=== PATIENT | female | born 1965 | race Caucasian/White ===

== ENCOUNTER 2016-09-30 17:10 | Emergency (ER) | payer MEDICAID ==
[2016-09-30] MEDS ORDERED: OXYCODONE-ACETAMINOPHEN 5-325 MG TABLET PO ONE (17:18)
--- NOTE | 2016-09-30 17:18 | ER Document Report ---
ED Medical Screen (RME) - General Stated Complaint: URINARY PROBLEM Mode of Arrival: Ambulatory Information source: Patient Notes: Patient complains of left flank pain for the past 2 days with difficulty urinating. Patient denies any fever. Patient does report a previous history kidney stones. hx: Kidney stones I have greeted and performed a rapid initial assessment of this patient. A comprehensive ED assessment and evaluation of the patient, analysis of test results and completion of the medical decision making process will be conducted by additional ED providers. TRAVEL OUTSIDE OF THE [place] IN LAST 30 DAYS: No - Related Data Allergies/Adverse Reactions: ibuprofen Allergy (Verified 09/30/16 17:17) latex Allergy (Verified 09/30/16 17:17) Penicillins Allergy (Verified 09/30/16 17:17) povidone-iodine [From Betadine] Allergy (Verified 09/30/16 17:17) soap [From Betadine] Allergy (Verified 09/30/16 17:17) Past Medical History Renal/ Medical History: Reports: Hx Kidney Stones, Hx Ovarian Cysts Malignancy Medical History: Reports: Hx Ovarian Cancer Musculoskeltal Medical History: Reports Hx Arthritis, Reports Hx Musculoskeletal Deformity, Reports Hx Musculoskeletal Trauma Psychiatric Medical History: Reports: Hx Post Traumatic Stress Disorder Traumatic Medical History: Reports: Hx Fractures Past Surgical History: Reports: Hx Adenoidectomy, Hx Hysterectomy, Hx Orthopedic Surgery - carpal tunnel, Hx Tonsillectomy, Hx Umbilical Hernia, Other - eye surgery Physical Exam - Vital signs Vitals: Temp Pulse Resp BP Pulse Ox 98.1 F 92 22 H 132/84 H 95 09/30/16 17:15 09/30/16 17:15 09/30/16 17:15 09/30/16 17:15 09/30/16 17:15 - Back Back: CVA tenderness - Left flank Course - Vital Signs Vital signs: Temp Pulse Resp BP Pulse Ox 98.1 F 92 22 H 132/84 H 95 09/30/16 17:15 09/30/16 17:15 09/30/16 17:15 09/30/16 17:15 09/30/16 17:15
[2016-09-30 18:45] LABS: ABSOLUTE BASOPHILS # (AUTO) 0.1 10^3/uL (0.0-0.2); ABSOLUTE EOSINOPHILS # (AUTO) 0.4 10^3/uL (0.0-0.6); ABSOLUTE MONOCYTES (AUTO) 1.1 10^3/uL (0.1-1.4); BASOPHILS % (AUTO) 0.9 % (0-2); EOSINOPHILS % (AUTO) 3.1 % (0-6); HEMATOCRIT 45.1 % (36.0-47.0); HEMOGLOBIN 15.1 g/dL (12.0-15.5); HGB HCT DIFFERENCE 0.2; LYMPHOCYTES % (AUTO) 39.6 % (13-45); MEAN CORPUSCULAR HEMOGLOBIN 31.4 pg (27.0-33.4); MEAN CORPUSCULAR HGB CONC 33.5 g/dL (32.0-36.0); MEAN CORPUSCULAR VOLUME 94 fl (80-97); MONOCYTES % (AUTO) 8.9 % (3-13); RED BLOOD COUNT 4.82 10^6/uL (3.72-5.28); RED CELL DISTRIBUTION WIDTH 12.5 % (11.5-14.0); SEGMENTED NEUTROPHILS % (AUTO) 47.5 % (42-78); WHITE BLOOD COUNT 12.7 10^3/uL (4.0-10.5)
[2016-09-30 18:46] LABS: APPEARANCE,URINE CLEAR; BILIRUBIN,URINE NEGATIVE (NEGATIVE); GLUCOSE, URINE NEGATIVE (NEGATIVE); KETONES,URINE NEGATIVE (NEGATIVE); LEUKOCYTE ESTERASE,URINE NEGATIVE (NEGATIVE); NITRITE,URINE NEGATIVE (NEGATIVE); PROTEIN,URINE NEGATIVE (NEGATIVE); URINE SPECIFIC GRAVITY 1.008; UROBILINOGEN,URINE NEGATIVE mg/dL (<2.0)
[2016-09-30 18:56] LABS: ALANINE AMINOTRANSFERASE 34 U/L (9-52); ALBUMIN 3.6 g/dL (3.5-5.0); ALKALINE PHOSPHATASE 57 U/L (38-126); ANION GAP 11 (5-19); ASPARTATE AMINO TRANSFERASE 20 U/L (14-36); BILIRUBIN,TOTAL 0.3 mg/dL (0.2-1.3); BLOOD UREA NITROGEN 11 mg/dL (7-20); CALCIUM 9.6 mg/dL (8.4-10.2); CARBON DIOXIDE 29 mmol/L (22-30); CHLORIDE 108 mmol/L (98-107); CREATININE RESULT 0.96 mg/dL (0.52-1.25); GLUCOSE 110 mg/dL (75-110); POTASSIUM 4.1 mmol/L (3.6-5.0); SODIUM 147.8 mmol/L (137-145); TOTAL PROTEIN 6.8 g/dL (6.3-8.2)
--- NOTE | 2016-09-30 20:18 | ER Document Report ---
ED GI/ - General Chief Complaint: Low Back Pain Stated Complaint: URINARY PROBLEM Time seen by provider: 20:18 Mode of Arrival: Ambulatory Notes: 51-year-old female presents to ED for complaint of left flank pain for 2 days. She states that yesterday she had frequency of urination but today she's had very little urine. She states she has drank 6 bottles of water today. She says it feels like the last time she had a kidney stone. Last kidney stone was over a year ago at which time she had a CAT scan. TRAVEL OUTSIDE OF THE [place] IN LAST 30 DAYS: No - HPI Patient complains to provider of: Dysuria, Flank pain Onset: Other - 2 days Timing/Duration: Intermittent Quality of pain: Sharp Severity at maximum: Severe Severity in ED: Moderate Pain Level: 2 Location: Left flank Vaginal bleeding (Compared to normal period): None Associated symptoms: Dysuria. denies: Nausea, Vomiting Exacerbated by: Sitting, Movement, Other Relieved by: Denies Similar symptoms previously: Yes Recently seen / treated by doctor: No - Related Data Allergies/Adverse Reactions: ibuprofen Allergy (Verified 09/30/16 17:17) latex Allergy (Verified 09/30/16 17:17) Penicillins Allergy (Verified 09/30/16 17:17) povidone-iodine [From Betadine] Allergy (Verified 09/30/16 17:17) soap [From Betadine] Allergy (Verified 09/30/16 17:17) Past Medical History - General Information source: Patient - Social History Smoking Status: Current Every Day Smoker Chew tobacco use (# tins/day): No Frequency of alcohol use: None Drug Abuse: None Lives with: Family Family History: Arthritis, CAD, COPD, CVA, DM, Hyperlipidemia, Hypertension, Malignancy, Thyroid Disfunction Patient has suicidal ideation: No Patient has homicidal ideation: No - Past Medical History Cardiac Medical History: Reports: None Pulmonary Medical History: Reports: None EENT Medical History: Reports: None Neurological Medical History: Reports: None Endocrine Medical History: Reports: None Renal/ Medical History: Reports: Hx Kidney Stones, Hx Ovarian Cysts. Denies: Hx Peritoneal Dialysis Malignancy Medical History: Reports: Hx Ovarian Cancer GI Medical History: Reports: None Musculoskeltal Medical History: Reports Hx Arthritis, Reports Hx Musculoskeletal Deformity, Reports Hx Musculoskeletal Trauma Psychiatric Medical History: Reports: Hx Post Traumatic Stress Disorder Traumatic Medical History: Reports: Hx Fractures Past Surgical History: Reports: Hx Adenoidectomy, Hx Hysterectomy, Hx Orthopedic Surgery - Bilat carpal tunnel, Hx Tonsillectomy, Hx Tubal Ligation, Hx Umbilical Hernia, Other - eye surgery - Immunizations Hx Diphtheria, Pertussis, Tetanus Vaccination: Yes Review of Systems - Review of Systems Constitutional: No symptoms reported EENT: No symptoms reported Cardiovascular: No symptoms reported Respiratory: No symptoms reported Gastrointestinal: No symptoms reported Genitourinary: Dysuria, Flank pain Female Genitourinary: No symptoms reported Musculoskeletal: No symptoms reported Skin: No symptoms reported Hematologic/Lymphatic: No symptoms reported Neurological/Psychological: No symptoms reported Physical Exam - Vital signs Vitals: Temp Pulse Resp BP Pulse Ox 98.1 F 92 22 H 132/84 H 95 09/30/16 17:15 09/30/16 17:15 09/30/16 17:15 09/30/16 17:15 09/30/16 17:15 Interpretation: Normal - General General appearance: Appears well, Alert - HEENT Head: Normocephalic, Atraumatic Eyes: Normal Pupils: PERRL - Respiratory Respiratory status: No respiratory distress Chest status: Nontender Breath sounds: Normal Chest palpation: Normal - Cardiovascular Rhythm: Regular Heart sounds: Normal auscultation Murmur: No - Abdominal Inspection: Normal Distension: No distension Bowel sounds: Normal Tenderness: Nontender Organomegaly: No organomegaly - Back Back: Normal, Tender, CVA tenderness - Left, Other - Low back pain bilateral - Extremities General upper extremity: Normal inspection, Nontender, Normal color, Normal ROM , Normal temperature General lower extremity: Normal inspection, Nontender, Normal color, Normal ROM , Normal temperature, Normal weight bearing. No: Naeem's sign - Neurological Neuro grossly intact: Yes Cognition: Normal Orientation: AAOx4 [place] Coma Scale Eye Opening: Spontaneous [place] Coma Scale Verbal: Oriented [place] Coma Scale Motor: Obeys Commands [place] Coma Scale Total: 15 Speech: Normal Motor strength normal: LUE, RUE, LLE, RLE Sensory: Normal - Psychological Associated symptoms: Normal affect, Normal mood - Skin Skin Temperature: Warm Skin Moisture: Dry Skin Color: Normal Course - Re-evaluation Re-evalutation: 09/30/16 21:[address] Quinn left flank pain and she has a history of kidney stones but her urine is negative. She instructed a CT Limited and abdomen pelvis to rule out kidney stone. Discussed CT with patient and written report given to patient for discharge. Patient also given a copy of all of her blood work and urine results and these were also discussed with her. Patient instructed to follow-up with primary doctor by telephone tomorrow and schedule an appointment. Patient also given a list of all the local doctors. - Vital Signs Vital signs: Temp Pulse Resp BP Pulse Ox 98.2 F 91 18 140/68 H 93 09/30/16 21:25 09/30/16 21:25 09/30/16 21:25 09/30/16 21:25 09/30/16 21:25 - Laboratory Result Diagrams: 09/30/16 18:00 09/30/16 18:00 Laboratory results interpreted by me: 09/30/16 09/30/16 18:00 18:00 WBC 12.7 H Absolute Lymphocytes 5.0 H Sodium 147.8 H Chloride 108 H - Diagnostic Test Radiology reviewed: Image reviewed, Reports reviewed Discharge - Discharge Clinical Impression: Left flank pain, Abdominal wall hernia Condition: Stable Disposition: HOME, SELF-CARE Instructions: Family Physicians / Practices Additional Instructions: Flank Pain We weren't able to prove an exact cause for your flank pain. Pain in the flank can be caused by a muscle strain or spasm. Sometimes a kidney stone causes pain, but can't be found on our tests. Infection in the kidney should be evident on a urine test. Early shingles can occasionally cause flank pain, without the rash that proves the diagnosis. On rare occasions, disease of the pancreas, aorta, spleen, or colon can create pain in the flank. At this time, there's no evidence of a dangerous condition, and it seems safe for you to be at home. If the pain goes away and does not come back, no further testing will be needed. If pain persists, or becomes more severe, we may need to repeat some tests or order additional new testing. Blood in the urine, urgency to urinate frequently, and pain that radiates to the groin can indicate a kidney stone. Fever may mean that the pain is due to infection, either of the kidney or the colon (diverticulitis). If your pain is early shingles, you should develop an eruption of blisters in the painful area within a few days. Call the doctor or return if you have pain that is spreading or becoming more severe, pain that does not resolve with time, fever, or any other new symptoms. Hernia You have a hernia. A hernia forms at a weak spot in the abdominal wall. Bowel slips out of the abdominal cavity into the weak spot. Hernias tend to occur in the groin (especially in males), the fold of the thigh, the naval, or at a surgical scar. Surgical repair of the defect is usually necessary. The problem tends to get worse. It's important that you follow up as recommended. For now, you should avoid straining, heavy lifting, and vigorous exercise. Complications occur if the hernia becomes tightly stuck. You should come back immediately if the area becomes increasingly painful, swollen, or discolored, or if you develop abdominal pain and vomiting. Acetaminophen Acetaminophen may be taken for pain relief or fever control. It's much safer than aspirin, offering a wider range of "safe" dosages. It is safe during . Some brand names are Tylenol, Panadol, Datril, Anacin 3, Tempra, and Liquiprin. Acetaminophen can be repeated every four hours. The following are maximum recommended dosages: WEIGHT Dose Drops Elixir Chewable( 80mg) (LBS.) drprs=droppers tsp=teaspoon 6 40 mg .4 ml (1/2) 6-11 80 mg .8 ml (full) 1/2 tsp 1 tab 12-16 120 mg 1 1/2 drprs 3/4 tsp 1 1/2 tabs 17-23 160 mg 2 drprs 1 tsp 2 tabs 24-30 240 mg 3 drprs 1 1/2 tsp 3 tabs 30-35 320 mg 2 tsp 4 tabs 36-41 360 mg 2 1/4 tsp 4 1 /2 tabs 42-47 400 mg 2 1/2 tsp 5 tabs 48-53 480 mg 3 tsp 6 tabs 54-59 520 mg 3 1/4 tsp 6 1 /2 tabs 60-64 560 mg 3 1/2 tsp 7 tabs 65-70 600 mg 3 3/4 tsp 7 1 /2 tabs 71-76 640 mg 4 tsp 8 tabs 77-82 720 mg 4 1/2 tsp 9 tabs 83-88 800 mg 5 tsp 10 tabs >89 pounds or adults 650 mg to 900 mg Acetaminophen can be repeated every four hours. Maximum daily dose not to exceed 4000 mg. These maximum recommended dosages are slightly higher than the dosages written on the product container, but these dosages are very safe and well below the toxic dosage for acetaminophen. FOLLOW-UP CARE: If you have been referred to a physician for follow-up care, call the physician s office for an appointment as you were instructed or within the next two days. If you experience worsening or a significant change in your symptoms, notify the physician immediately or return to the Emergency Department at any time for re-evaluation. Forms: Elevated Blood Pressure, Smoking Cessation Education
[2016-09-30 21:33] VITALS: BP 140/68
== END 2016-09-30 21:34 | disposition home or self-care (01) ==
LOC: ER 17:10
DX: K43.9 Ventral hernia without obstruction or gangrene (principal); M54.5 Low back pain; R35.0 Frequency of micturition; R30.0 Dysuria; F17.200 Nicotine dependence, unspecified, uncomplicated; Z87.442 Personal history of urinary calculi; Z85.43 Personal history of malignant neoplasm of ovary; Z90.710 Acquired absence of both cervix and uterus; Z88.6 Allergy status to analgesic agent; Z91.040 Latex allergy status; Z88.0 Allergy status to penicillin
CPT/HCPCS: 36415; 76380; 80053; 81001; 85025; 99284

== ENCOUNTER 2016-12-07 22:27 | Emergency (ER) ==
[2016-12-07 22:56] VITALS: BP 132/79
== END 2016-12-08 01:20 | disposition left against medical advice (07) ==
LOC: ER 22:27
DX: Z53.21 Procedure and treatment not carried out due to patient leaving prior to being seen by health care provider (principal)

== ENCOUNTER 2016-12-12 19:41 | Emergency (ER) | END 2016-12-13 02:59 | disposition left against medical advice (07) | LOC: ER 19:41 | DX: Z53.9 Procedure and treatment not carried out, unspecified reason (principal); R20.0 Anesthesia of skin ==

== ENCOUNTER 2016-12-13 18:18 | Emergency (ER) | payer SELFPAY ==
[2016-12-13 18:37] VITALS: BP 122/100
== END 2016-12-14 04:01 | disposition left against medical advice (07) ==
LOC: ER 18:18
DX: Z53.21 Procedure and treatment not carried out due to patient leaving prior to being seen by health care provider (principal)

== ENCOUNTER 2016-12-20 14:23 | Emergency (ER) | payer SELFPAY ==
--- NOTE | 2016-12-20 16:12 | ER Document Report ---
ED General - General Mode of Arrival: Ambulatory Information source: Patient TRAVEL OUTSIDE OF THE [place] IN LAST 30 DAYS: No - HPI Onset: This morning - see HPI note Similar symptoms previously: No Recently seen / treated by doctor: No - General Chief Complaint: Chest Pain Stated Complaint: CHEST PAIN Notes: Patient is a 51-year-old female presents the emergency department for a sharp pain in her chest. Patient's pain was onset at 9:30 this morning. Patient states that she has been under a lot of stress recently and she also just recently started working out again. Patient states she does the [employer] arm workout. Patient states that she has some swelling to her left chest and stiffness to her neck. Patient states that someone told her to go get an EKG done at the emergency room to see if it was okay. Patient states her left anterior chest is tender to touch. Patient states she has had angina in the past, but this is different. Patient states she does not want any further workup other than the EKG. Patient does not have a primary care physician because she has not gotten her insurance since she started working again. Patient does request information for the clinic for follow-up. (DAYANNA HAQUE) - Related Data Allergies/Adverse Reactions: ibuprofen Allergy (Verified 12/20/16 15:00) latex Allergy (Verified 12/20/16 15:00) Penicillins Allergy (Verified 12/20/16 15:00) povidone-iodine [From Betadine] Allergy (Verified 12/20/16 15:00) soap [From Betadine] Allergy (Verified 12/20/16 15:00) Past Medical History - General Information source: Patient - Social History Smoking Status: Unknown if Ever Smoked Family History: Arthritis, CAD, COPD, CVA, DM, Hyperlipidemia, Hypertension, Malignancy, Thyroid Disfunction Patient has suicidal ideation: No Patient has homicidal ideation: No Renal/ Medical History: Reports: Hx Kidney Stones, Hx Ovarian Cysts Malignancy Medical History: Reports: Hx Ovarian Cancer Musculoskeltal Medical History: Reports Hx Arthritis, Reports Hx Musculoskeletal Deformity, Reports Hx Musculoskeletal Trauma Psychiatric Medical History: Reports: Hx Post Traumatic Stress Disorder Traumatic Medical History: Reports: Hx Fractures Past Surgical History: Reports: Hx Adenoidectomy, Hx Hysterectomy, Hx Orthopedic Surgery - Bilat carpal tunnel, Hx Tonsillectomy, Hx Tubal Ligation, Hx Umbilical Hernia, Other - eye surgery - Immunizations Hx Diphtheria, Pertussis, Tetanus Vaccination: Yes Review of Systems - Review of Systems Constitutional: No symptoms reported EENT: No symptoms reported Cardiovascular: See HPI, Chest pain Respiratory: No symptoms reported Gastrointestinal: No symptoms reported Genitourinary: No symptoms reported Female Genitourinary: No symptoms reported Musculoskeletal: No symptoms reported Skin: No symptoms reported Hematologic/Lymphatic: No symptoms reported Neurological/Psychological: No symptoms reported -: Yes All other systems reviewed and negative Physical Exam - Vital signs Interpretation: Normal - General General appearance: Appears well, Alert In distress: Mild - HEENT Head: Normocephalic, Atraumatic Eyes: Normal Pupils: PERRL Mucous membranes: Moist - Respiratory Respiratory status: No respiratory distress Chest status: Tender - Reproducible tenderness to the left anterior chest wall Breath sounds: Normal Chest palpation: Normal - Cardiovascular Rhythm: Regular Heart sounds: Normal auscultation Murmur: No - Abdominal Inspection: Normal Distension: No distension Bowel sounds: Normal Tenderness: Nontender Organomegaly: No organomegaly - Back Back: Normal, Nontender - Extremities General upper extremity: Normal inspection, Normal ROM, Normal strength General lower extremity: Normal inspection, Normal ROM, Normal strength - Neurological Neuro grossly intact: Yes Cognition: Normal Orientation: AAOx4 [place] Coma Scale Eye Opening: Spontaneous [place] Coma Scale Verbal: Oriented [place] Coma Scale Motor: Obeys Commands [place] Coma Scale Total: 15 Speech: Normal - Psychological Associated symptoms: Normal affect, Normal mood - Skin Skin Temperature: Warm Skin Moisture: Dry Course - Re-evaluation Re-evalutation: 12/20/16 16:13 Patient presents emergency, sharp stabbing chest pain that is resolved now. Said she was donating plasma this morning had sharp chest pain he told her to come here for evaluation. 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 She said she does not want anything more than a EKG. She denies any history of high blood pressure diabetes hyperlipidemia recent history of travel surgery mobilization DVT or pulmonary emboli I asked her to stay have a full workup done including chest x-ray laboratory evaluation she refused states she is fine she wants follow-up with primary care physician which I'm going give her and told her to return immediately for any increasing worsening or new symptoms. She does have reproducible chest pain on the left EKG is stable. She wants to go home and vehemently refuses to have any additional workup done at this time. The risk associated with that could include or permanent disability she verbalizes an understanding of this and is able to make her own decisions at this point discussed reasons for return (BRANDI RAZO) - Vital Signs Vital signs: Temp Pulse Resp BP Pulse Ox 97.7 F 74 20 129/66 H 95 12/20/16 16:24 12/20/16 16:24 12/20/16 16:24 12/20/16 16:24 12/20/16 16:24 - EKG Interpretation by Me Additional EKG results interpreted by me: 12/20/16 16:16 EKG interpreted by myself to reveal sinus rhythm at [address] segment elevation or depression (BRANDI RAZO) Discharge - Discharge Clinical Impression: chest pain Condition: Stable Disposition: HOME, SELF-CARE Additional Instructions: Chest Pain of Unclear Cause The exact cause of your chest pain isn't clear. Fortunately, there is no evidence of a dangerous medical condition. Further testing may be required to find the source of the pain. Most often, we find that this pain is coming from the chest wall -- the muscles or rib joints in the chest. But chest pain can come from the lung and lung lining, the esophagus, the heart valves or heart lining, and even the stomach or gallbladder. Rest. Eat lightly until the pain is gone. We may prescribe medicine for pain and inflammation. You should call the physician immediately if the pain radiates to the shoulder, jaw or arms; if you start to run a fever or develop a cough; or if you develop shortness of breath, or other new or alarming symptoms. Referrals: [facility] [Provider Group] - Follow up tomorrow (Follow-up with your primary care physician tomorrow return immediately to the emergency department for increasing worsening or new symptoms) Scribe Attestation: 12/20/16 16:16 I personally performed the services described in the documentation reviewed the documentation recorded by my scribe in my presence and it accurately and completely records my words and actions (BRANDI RAZO) Scribe Documentation - Scribe Written by Shanna:: Dayanna Haque 12/20/16 16:50 acting as scribe for :: Jagdish
[2016-12-20 16:26] VITALS: BP 129/66
--- NOTE | 2016-12-21 09:33 | EKG REPORT ---
SEVERITY:- OTHERWISE NORMAL ECG - SINUS RHYTHM BORDERLINE LEFT AXIS DEVIATION : Confirmed by: Ryan Morse 21-Dec-2016 09:32:57
== END 2016-12-20 16:54 | disposition home or self-care (01) ==
LOC: ER 14:23
DX: R07.9 Chest pain, unspecified (principal)
CPT/HCPCS: 93005; 93010; 99284

== ENCOUNTER 2016-12-21 06:02 | Emergency (ER) | payer MEDICAID ==
[2016-12-21 07:26] LABS: ABSOLUTE EOSINOPHILS # (AUTO) 0.5 10^3/uL (0.0-0.6); ABSOLUTE LYMPHOCYTES (AUTO) 4.7 10^3/uL (0.5-4.7); ABSOLUTE NEUT (AUTO) 6.1 10^3/uL (1.7-8.2); BASOPHILS % (AUTO) 0.3 % (0-2); EOSINOPHILS % (AUTO) 4.3 % (0-6); HEMATOCRIT 43.1 % (36.0-47.0); HGB HCT DIFFERENCE 1.9; LYMPHOCYTES % (AUTO) 38.1 % (13-45); MEAN CORPUSCULAR HGB CONC 34.8 g/dL (32.0-36.0); MEAN CORPUSCULAR VOLUME 92 fl (80-97); RED BLOOD COUNT 4.69 10^6/uL (3.72-5.28); RED CELL DISTRIBUTION WIDTH 13.4 % (11.5-14.0); SEGMENTED NEUTROPHILS % (AUTO) 49.3 % (42-78); WHITE BLOOD COUNT 12.3 10^3/uL (4.0-10.5)
[2016-12-21] MEDS ORDERED: LIDOCAINE 5% (700 MG) TRANSDERMAL ADH..PATCH TP ONE (07:29)
[2016-12-21 07:38] LABS: ALANINE AMINOTRANSFERASE 28 U/L (9-52); ALBUMIN 3.6 g/dL (3.5-5.0); ALKALINE PHOSPHATASE 71 U/L (38-126); ANION GAP 9 (5-19); ASPARTATE AMINO TRANSFERASE 14 U/L (14-36); BILIRUBIN,DIRECT 0.3 mg/dL (0.0-0.4); BILIRUBIN,TOTAL 0.5 mg/dL (0.2-1.3); BLOOD UREA NITROGEN 11 mg/dL (7-20); CALCIUM 9.9 mg/dL (8.4-10.2); CARBON DIOXIDE 29 mmol/L (22-30); CHLORIDE 108 mmol/L (98-107); CREATINE KINASE 44 U/L (30-135); CREATININE RESULT 0.67 mg/dL (0.52-1.25); GLUCOSE 127 mg/dL (75-110); POTASSIUM 4.6 mmol/L (3.6-5.0); SODIUM 145.5 mmol/L (137-145); TOTAL PROTEIN 6.8 g/dL (6.3-8.2)
[2016-12-21 07:50] LABS: CREATINE KINASE MB 0.94 ng/mL (<4.55)
--- NOTE | 2016-12-21 07:50 | ER Document Report ---
ED General - General Chief Complaint: Chest Pain Stated Complaint: CHEST PAIN TRAVEL OUTSIDE OF THE [place] IN LAST 30 DAYS: No - HPI Patient complains to provider of: left breast pain Notes: Patient presents today for evaluation of left breast pain. Patient was seen for 24 hours before this visit with a similar complaint on a requesting EKG to be performed. Patient refused to have any further lab work done however states that [place]oleon has had intermittent sharp shooting stabbing pains in her left breast going around to the left lateral chest wall. Patient states that she used to be a drug abuser however has been clean for 7 years. Patient does smoke approximately one pack a day. Patient otherwise is not having other past medical problems does not take any medications daily. Patient states she's never had any testing that her heart. Patient denies any family history of cardiac disease. Otherwise patient states she has not had any nausea vomiting diarrhea fevers chills shortness of breath no recent travel she's not on any control or hormone replacement therapy. - Related Data Allergies/Adverse Reactions: diphenhydramine Allergy (Verified 12/21/16 06:10) ibuprofen Allergy (Verified 12/21/16 06:10) latex Allergy (Verified 12/21/16 06:10) Penicillins Allergy (Verified 12/21/16 06:10) povidone-iodine [From Betadine] Allergy (Verified 12/21/16 06:10) soap [From Betadine] Allergy (Verified 12/21/16 06:10) Past Medical History - Social History Smoking Status: Current Every Day Smoker Chew tobacco use (# tins/day): No Frequency of alcohol use: None Drug Abuse: None Family History: Arthritis, CAD, COPD, CVA, DM, Hyperlipidemia, Hypertension, Malignancy, Thyroid Disfunction Renal/ Medical History: Reports: Hx Kidney Stones, Hx Ovarian Cysts. Denies: Hx Peritoneal Dialysis Malignancy Medical History: Reports: Hx Ovarian Cancer Musculoskeltal Medical History: Reports Hx Arthritis, Reports Hx Musculoskeletal Deformity, Reports Hx Musculoskeletal Trauma Psychiatric Medical History: Reports: Hx Post Traumatic Stress Disorder Traumatic Medical History: Reports: Hx Fractures Past Surgical History: Reports: Hx Adenoidectomy, Hx Hysterectomy, Hx Orthopedic Surgery - Bilat carpal tunnel, Hx Tonsillectomy, Hx Tubal Ligation, Hx Umbilical Hernia, Other - eye surgery - Immunizations Hx Diphtheria, Pertussis, Tetanus Vaccination: Yes Review of Systems - Review of Systems Constitutional: No symptoms reported EENT: No symptoms reported Cardiovascular: Chest pain Respiratory: No symptoms reported Gastrointestinal: No symptoms reported Genitourinary: No symptoms reported Female Genitourinary: No symptoms reported Musculoskeletal: No symptoms reported Skin: No symptoms reported Hematologic/Lymphatic: No symptoms reported Neurological/Psychological: No symptoms reported Physical Exam - Vital signs Vitals: Temp Pulse Resp BP Pulse Ox 97.4 F 79 18 139/66 H 93 12/21/16 06:12 12/21/16 06:12 12/21/16 06:12 12/21/16 06:12 12/21/16 06:12 Interpretation: Normal - General General appearance: Appears well, Alert - HEENT Head: Normocephalic, Atraumatic Eyes: Normal Pupils: PERRL - Respiratory Respiratory status: No respiratory distress Chest status: Nontender Breath sounds: Normal Chest palpation: Normal Notes: Examination of the chest wall and breast area with RN bedside Kadi shows no signs of rash no lesions pain is reproducible with manipulation of the left breast. - Cardiovascular Rhythm: Regular Heart sounds: Normal auscultation Murmur: No - Abdominal Inspection: Normal Distension: No distension Bowel sounds: Normal Tenderness: Nontender Organomegaly: No organomegaly - Back Back: Normal, Nontender - Extremities General upper extremity: Normal inspection, Nontender, Normal color, Normal ROM , Normal temperature General lower extremity: Normal inspection, Nontender, Normal color, Normal ROM , Normal temperature, Normal weight bearing. No: Naeem's sign - Neurological Neuro grossly intact: Yes Cognition: Normal Orientation: AAOx4 [place] Coma Scale Eye Opening: Spontaneous [place] Coma Scale Verbal: Oriented [place] Coma Scale Motor: Obeys Commands [place] Coma Scale Total: 15 Speech: Normal Motor strength normal: LUE, RUE, LLE, RLE Sensory: Normal - Psychological Associated symptoms: Normal affect, Normal mood - Skin Skin Temperature: Warm Skin Moisture: Dry Skin Color: Normal Course - Re-evaluation Re-evalutation: 12/21/16 14:56 The patient has atypical chest pain as the patient's chest pain is not suggestive of pulmonary embolus, cardiac ischemia, aortic dissection, or other serious etiology. Given the extremely low risk of these diagnoses further testing and evaluation for these possibilities does not appear to be indicated at this time. The patient has been instructed to return if the symptoms worsen or change in any way. Patient examination access to any cardiac etiology. Patient possible development of shingles patient was instructed to watch for specific rash. - Vital Signs Vital signs: Temp Pulse Resp BP Pulse Ox 97.4 F 73 22 H 129/65 H 96 12/21/16 06:12 12/21/16 08:36 12/21/16 08:36 12/21/16 08:36 12/21/16 08:36 - Laboratory Result Diagrams: 12/21/16 07:08 12/21/16 07:08 Laboratory results interpreted by me: 12/21/16 12/21/16 07:08 07:08 WBC 12.3 H Plt Count 529 H Sodium 145.5 H Chloride 108 H Glucose 127 H Discharge - Discharge Clinical Impression: Breast pain, left, Chest wall pain Condition: Good Disposition: HOME, SELF-CARE Instructions: Anti-Inflammatory Medication ([facility]), Chest Wall Pain ([facility]) Additional Instructions: Please be sure to follow-up with primary care. I will give her information to our disease case manager that she can see if she can establish care at 1 the local [facility]. Continue to take Tylenol Motrin for pain control. He may also ask her pharmacist about a Lidoderm patch substitute such as salon positive or Aspercreme. Return to the ER symptoms worsen. Please monitor your chest for any signs of a rash formation. If you do start see blisters forming please return to the ER as that this may be the beginning of shingles. Prescriptions: Lidocaine [Lidoderm 5% (700 mg) Transdermal Patch] 1 patch TP DAILY #10 adh..patch Forms: Smoking Cessation Education
[2016-12-21 07:52] LABS: TROPONIN I < 0.012 ng/mL
[2016-12-21 08:37] VITALS: BP 129/65
--- NOTE | 2016-12-21 09:33 | EKG REPORT ---
SEVERITY:- NORMAL ECG - SINUS RHYTHM : Confirmed by: Ryan Morse 21-Dec-2016 09:32:50
== END 2016-12-21 08:41 | disposition home or self-care (01) ==
LOC: ER 06:02
DX: N64.4 Mastodynia (principal); R07.89 Other chest pain; Z88.8 Allergy status to other drugs, medicaments and biological substances; Z88.6 Allergy status to analgesic agent; Z91.040 Latex allergy status; Z88.0 Allergy status to penicillin; Z88.3 Allergy status to other anti-infective agents; F17.200 Nicotine dependence, unspecified, uncomplicated; Z85.43 Personal history of malignant neoplasm of ovary
CPT/HCPCS: 36415; 71010; 80053; 82550; 82553; 84484; 85025; 85379; 93005; 93010; 99285

== ENCOUNTER 2017-01-05 21:48 | Emergency (ER) | payer SELFPAY | END 2017-01-05 22:40 | disposition left against medical advice (07) | LOC: ER 21:48 | DX: Z53.21 Procedure and treatment not carried out due to patient leaving prior to being seen by health care provider (principal) ==